=== PATIENT | male | born 2000 | race Caucasian/White ===

== ENCOUNTER 2021-04-01 12:27 | Emergency (ER) | payer OTHER ==
[2021-04-01] MEDS ORDERED: Dexamethasone 10 MG/ML VIAL ONE (13:49)
[2021-04-01] MEDS ORDERED: Ketorolac Tromethamine 30 MG/ML VIAL ONE (13:50)
[2021-04-01] MEDS ORDERED: Cyclobenzaprine 10 MG TAB ONE (13:50)
== END 2021-04-01 14:07 | disposition home or self-care (01) ==
LOC: CSHERS 12:27
DX: S39.012A Strain of muscle, fascia and tendon of lower back, initial encounter (principal)
CPT/HCPCS: 96372; 99283; J1100; J1885